=== PATIENT | male | born 1945 | race Caucasian/White ===

== ENCOUNTER 2021-01-01 08:51 | Inpatient (IN) | payer MEDICARE, BC ==
[2021-01-01] MEDS ORDERED: Dexamethasone 10 MG/ML VIAL ONE (09:53)
[2021-01-01 10:30] LABS: #Lymphocytes 0.4 thou/uL (1.20-3.40); #Monocytes 0.5 thou/uL (0.11-0.59); #Neutrophils 6.3 thou/uL (1.40-6.50); %Basophils 0.1 % (0.0-1.0); %Eosinophils 0.1 % (0.0-10.0); %Monocytes 7.2 % (0.0-10.0); %Neutrophils 86.6 % (42.0-75.0); Hemoglobin 13.4 g/dL (14.0-18.0); Mean Corpuscular HGB CONC 32.6 g/dL (32.0-36.0); Mean Corpuscular Hemoglobin 30.4 pg (27.0-31.0); Mean Corpuscular Volume 93.2 fL (78.0-98.0); Mean Platelet Volume 8.4 fL (7.4-10.4); Platelet Count 126 thou/uL (130-400); RBC Distribution Width 12.8 % (11.5-14.5); Red Blood Cell (RBC) Count 4.41 mill/uL (4.70-6.10); White Blood Cell (WBC) Count 7.2 thou/uL (4.8-10.8)
[2021-01-01 11:02] LABS: ALT (SGPT) 71 U/L (8-55); AST (SGOT) 38 U/L (5-34); Albumin 3.6 g/dL (3.4-4.8); Alkaline Phosphatase 60 U/L (40-110); Anion Gap 12 mmol/L (10-20); BUN (Urea Nitrogen) 23 mg/dL (8.4-25.7); Bilirubin, Total 1.3 mg/dL (0.2-1.2); Calc. Creatinine Clearance 0 mL/min (70-130); Calcium 8.5 mg/dL (7.8-10.44); Carbon Dioxide 25 mmol/L (23-31); Chloride 106 mmol/L (98-107); Globulin 2.8 g/dL (2.4-3.5); Glucose 150 mg/dL (83-110); Potassium 3.6 mmol/L (3.5-5.1); Protein, Total 6.4 g/dL (5.8-8.1); Sodium 139 mmol/L (136-145)
[2021-01-01] MEDS ORDERED: Ketorolac Tromethamine 30 MG/ML VIAL ONE (11:17)
[2021-01-01] MEDS ORDERED: Ondansetron PF 4 MG/2 ML Vial ONE (11:17)
[2021-01-01 13:01] LABS: SARS-CoV-2 NAA Rapid Test DETECTED (NotDetected)
[2021-01-01] MEDS: cefTRIAXone\\ROCEPHIN 1 GM in Sodium Chloride 0.9% 100 ML IVPB SCH (15:31)
[2021-01-01] MEDS: Azithromycin 500 MG in Sodium Chloride 0.9% 250 ML 250 ML IVPB SCH (15:31)
[2021-01-01] MEDS: Atenolol 50 MG TAB PO SCH (21:56)
[2021-01-02] MEDS: Amlodipine 5 MG TAB PO SCH (08:09)
[2021-01-02] MEDS: Aspirin 81 mg Enteric Coated Tablet PO SCH (08:09)
[2021-01-02] MEDS ORDERED: Dexamethasone 4 mg/ml Vial SLOW IVP SCH (09:00)
[2021-01-02] MEDS ORDERED: Aspirin 81 mg Enteric Coated Tablet PO SCH (09:00)
[2021-01-02] MEDS ORDERED: Dexamethasone 10 MG in Sodium Chloride 0.9% 50 ML IVPB SCH (09:47)
[2021-01-02] MEDS ORDERED: Ascorbic Acid 500 mg Chewable Tablet PO SCH ×2 (09:48→10:15)
[2021-01-02] MEDS ORDERED: Cholecalciferol 1,000 UNITS (25 MCG) TAB PO SCH ×2 (09:48→10:15)
[2021-01-02] MEDS ORDERED: Enoxaparin Sodium 40 MG/0.4 ML SYRINGE SC SCH (10:00)
[2021-01-02] MEDS ORDERED: Thiamine 100 MG TAB PO SCH (10:00)
[2021-01-02] MEDS ORDERED: Zinc Sulfate 220 MG CAP PO SCH (10:30)
[2021-01-02] MEDS ORDERED: Sodium Chloride 0.9% (PF) 10 ML VIAL FS PRN (10:30)
[2021-01-02] MEDS ORDERED: Dexamethasone 10 MG/ML VIAL SLOW IVP SCH (10:30)
[2021-01-02] MEDS: cefTRIAXone\\ROCEPHIN 1 GM in Sodium Chloride 0.9% 100 ML IVPB SCH (11:26)
[2021-01-02] MEDS: Enoxaparin Sodium 40 MG/0.4 ML SYRINGE SC SCH (11:26)
[2021-01-02] MEDS: Azithromycin 500 MG in Sodium Chloride 0.9% 250 ML 250 ML IVPB SCH (12:11)
[2021-01-02] MEDS ORDERED: Furosemide 40 MG/4 ML VIAL SLOW IVP SCH (17:45)
[2021-01-02] MEDS: Potassium Chloride 20 MEQ in Premix Bag 1 BAG IVPB SCH (18:41)
[2021-01-02] MEDS ORDERED: Potassium Chloride 20 MEQ TAB PO SCH (18:45)
[2021-01-02] MEDS: Dexamethasone 10 MG/ML VIAL SLOW IVP SCH (20:39)
[2021-01-02] MEDS: CLOMIPRAMINE HCL 25 MG PO SCH (20:39)
[2021-01-02] MEDS: Atenolol 50 MG TAB PO SCH (22:07)
[2021-01-03] MEDS: Thiamine 100 MG TAB PO SCH (09:21)
[2021-01-03] MEDS: Aspirin 81 mg Enteric Coated Tablet PO SCH (09:22)
[2021-01-03] MEDS: Amlodipine 5 MG TAB PO SCH (09:22)
[2021-01-03] MEDS: Pantoprazole 40 MG VIAL IVP SCH (09:22)
[2021-01-03] MEDS: Cholecalciferol 1,000 UNITS (25 MCG) TAB PO SCH (09:22)
[2021-01-03] MEDS: Ascorbic Acid 500 mg Chewable Tablet PO SCH (09:22)
[2021-01-03] MEDS: Dexamethasone 10 MG/ML VIAL SLOW IVP SCH ×2 (09:22→20:17)
[2021-01-03] MEDS: Enoxaparin Sodium 40 MG/0.4 ML SYRINGE SC SCH (09:22)
[2021-01-03] MEDS: Zinc Sulfate 220 MG CAP PO SCH (09:22)
[2021-01-03] MEDS: Azithromycin 500 MG in Sodium Chloride 0.9% 250 ML 250 ML IVPB SCH (12:18)
[2021-01-03] MEDS: cefTRIAXone\\ROCEPHIN 1 GM in Sodium Chloride 0.9% 100 ML IVPB SCH (12:18)
[2021-01-03] MEDS ORDERED: Amlodipine 10 MG TAB PO SCH (19:00)
[2021-01-03] MEDS: Atenolol 50 MG TAB PO SCH (20:17)
[2021-01-03] MEDS: CLOMIPRAMINE HCL 25 MG PO SCH (20:17)
[2021-01-04] MEDS: Aspirin 81 mg Enteric Coated Tablet PO SCH (08:17)
[2021-01-04] MEDS: Ascorbic Acid 500 mg Chewable Tablet PO SCH (08:17)
[2021-01-04] MEDS: Amlodipine 10 MG TAB PO SCH (08:17)
[2021-01-04] MEDS: Zinc Sulfate 220 MG CAP PO SCH (08:20)
[2021-01-04] MEDS: Thiamine 100 MG TAB PO SCH (08:20)
[2021-01-04] MEDS: Enoxaparin Sodium 40 MG/0.4 ML SYRINGE SC SCH (08:20)
[2021-01-04] MEDS: Cholecalciferol 1,000 UNITS (25 MCG) TAB PO SCH (08:20)
[2021-01-04] MEDS: Pantoprazole 40 MG VIAL IVP SCH (08:20)
[2021-01-04] MEDS: Dexamethasone 10 MG/ML VIAL SLOW IVP SCH ×2 (08:20→20:15)
[2021-01-04] MEDS: Azithromycin 500 MG in Sodium Chloride 0.9% 250 ML 250 ML IVPB SCH (13:37)
[2021-01-04] MEDS: cefTRIAXone\\ROCEPHIN 1 GM in Sodium Chloride 0.9% 100 ML IVPB SCH (13:37)
[2021-01-04] MEDS: CLOMIPRAMINE HCL 25 MG PO SCH (20:15)
[2021-01-04] MEDS: Atenolol 50 MG TAB PO SCH (20:40)
[2021-01-04] MEDS ORDERED: Pharmacy to Dose BARICITINIB PO PRN (20:51)
[2021-01-04] MEDS: BARICITINIB 2 MG TAB PO SCH (21:31)
[2021-01-05 04:16] LABS: #Lymphocytes 0.5 thou/uL (1.20-3.40); #Monocytes 0.5 thou/uL (0.11-0.59); #Neutrophils 7.6 thou/uL (1.40-6.50); %Eosinophils 0.1 % (0.0-10.0); %Lymphocytes 5.6 % (21.0-51.0); %Monocytes 5.4 % (0.0-10.0); %Neutrophils 88.9 % (42.0-75.0); Hemoglobin 14.5 g/dL (14.0-18.0); Mean Corpuscular HGB CONC 34.3 g/dL (32.0-36.0); Mean Corpuscular Hemoglobin 32.2 pg (27.0-31.0); Mean Corpuscular Volume 93.8 fL (78.0-98.0); Mean Platelet Volume 8.4 fL (7.4-10.4); Platelet Count 167 thou/uL (130-400); RBC Distribution Width 12.5 % (11.5-14.5); White Blood Cell (WBC) Count 8.5 thou/uL (4.8-10.8)
[2021-01-05 04:36] LABS: ALT (SGPT) 216 U/L (8-55); AST (SGOT) 90 U/L (5-34); Albumin 3.1 g/dL (3.4-4.8); Alkaline Phosphatase 70 U/L (40-110); Anion Gap 15 mmol/L (10-20); BUN (Urea Nitrogen) 37 mg/dL (8.4-25.7); Bilirubin, Total 0.9 mg/dL (0.2-1.2); Calc. Creatinine Clearance 61 mL/min (70-130); Calcium 8.2 mg/dL (7.8-10.44); Carbon Dioxide 22 mmol/L (23-31); Chloride 103 mmol/L (98-107); Globulin 2.9 g/dL (2.4-3.5); Glucose 414 mg/dL (83-110); Potassium 4.9 mmol/L (3.5-5.1); Sodium 135 mmol/L (136-145)
[2021-01-05] MEDS: Aspirin 81 mg Enteric Coated Tablet PO SCH (07:58)
[2021-01-05] MEDS: Dexamethasone 10 MG/ML VIAL SLOW IVP SCH ×2 (07:58→20:09)
[2021-01-05] MEDS: Thiamine 100 MG TAB PO SCH (07:58)
[2021-01-05] MEDS: Amlodipine 10 MG TAB PO SCH (07:58)
[2021-01-05] MEDS: Pantoprazole 40 MG VIAL IVP SCH (07:59)
[2021-01-05] MEDS: Cholecalciferol 1,000 UNITS (25 MCG) TAB PO SCH (07:59)
[2021-01-05] MEDS: Ascorbic Acid 500 mg Chewable Tablet PO SCH (07:59)
[2021-01-05] MEDS: Enoxaparin Sodium 40 MG/0.4 ML SYRINGE SC SCH (07:59)
[2021-01-05] MEDS: Zinc Sulfate 220 MG CAP PO SCH (07:59)
[2021-01-05] MEDS ORDERED: Dextrose 50% Abboject 50 ML SYRINGE SLOW IVP PRN (13:46)
[2021-01-05] MEDS ORDERED: Dextrose 5% in Water 1,000 ML IV PRN (13:46)
[2021-01-05] MEDS: HumaLOG 300 UNITS/3 ML VIAL SC PRN (17:00)
[2021-01-05] MEDS: CLOMIPRAMINE HCL 25 MG PO SCH (20:09)
[2021-01-05] MEDS: BARICITINIB 2 MG TAB PO SCH (20:09)
[2021-01-05] MEDS: Atenolol 50 MG TAB PO SCH (21:39)
[2021-01-06] MEDS: HumaLOG 300 UNITS/3 ML VIAL SC PRN (06:33)
[2021-01-06] MEDS: Amlodipine 10 MG TAB PO SCH (09:25)
[2021-01-06] MEDS: Aspirin 81 mg Enteric Coated Tablet PO SCH (09:25)
[2021-01-06] MEDS: Ascorbic Acid 500 mg Chewable Tablet PO SCH (09:25)
[2021-01-06] MEDS: Lantus 1000 UNITS/10 ML VIAL SC SCH ×2 (09:25→21:29)
[2021-01-06] MEDS: Thiamine 100 MG TAB PO SCH (09:25)
[2021-01-06] MEDS: Dexamethasone 10 MG/ML VIAL SLOW IVP SCH ×2 (09:25→21:29)
[2021-01-06] MEDS: Cholecalciferol 1,000 UNITS (25 MCG) TAB PO SCH (09:25)
[2021-01-06] MEDS: Zinc Sulfate 220 MG CAP PO SCH (09:25)
[2021-01-06] MEDS ORDERED: Ondansetron PF 4 MG/2 ML Vial IVP SCH (11:45)
[2021-01-06] MEDS ORDERED: Mag-Al 1200 mg/1200 mg/30 ML UDCUP PO SCH (11:45)
[2021-01-06] MEDS ORDERED: Ondansetron PF 4 MG/2 ML Vial IVP PRN (15:31)
[2021-01-06] MEDS ORDERED: Mag-Al 1200 mg/1200 mg/30 ML UDCUP PO PRN (15:31)
[2021-01-06] MEDS: BARICITINIB 2 MG TAB PO SCH (21:28)
[2021-01-06] MEDS: CLOMIPRAMINE HCL 25 MG PO SCH (21:28)
[2021-01-06] MEDS: Atenolol 50 MG TAB PO SCH (22:04)
[2021-01-07] MEDS ORDERED: Acetaminophen 325 MG TAB PO PRN (01:21)
[2021-01-07] MEDS: HumaLOG 300 UNITS/3 ML VIAL SC PRN (06:14)
[2021-01-07] MEDS: Enoxaparin Sodium 40 MG/0.4 ML SYRINGE SC SCH (08:08)
[2021-01-07] MEDS: Lantus 1000 UNITS/10 ML VIAL SC SCH ×2 (08:09→20:27)
[2021-01-07] MEDS: Zinc Sulfate 220 MG CAP PO SCH (08:09)
[2021-01-07] MEDS: Aspirin 81 mg Enteric Coated Tablet PO SCH (08:09)
[2021-01-07] MEDS: Cholecalciferol 1,000 UNITS (25 MCG) TAB PO SCH (08:09)
[2021-01-07] MEDS: Dexamethasone 10 MG/ML VIAL SLOW IVP SCH ×2 (08:09→20:26)
[2021-01-07] MEDS: Amlodipine 10 MG TAB PO SCH (08:09)
[2021-01-07] MEDS: Ascorbic Acid 500 mg Chewable Tablet PO SCH (08:09)
[2021-01-07] MEDS: Thiamine 100 MG TAB PO SCH (08:09)
[2021-01-07 10:15] LABS: #Lymphocytes 0.8 thou/uL (1.20-3.40); #Monocytes 0.7 thou/uL (0.11-0.59); #Neutrophils 12.2 thou/uL (1.40-6.50); %Eosinophils 0.1 % (0.0-10.0); %Lymphocytes 5.8 % (21.0-51.0); %Neutrophils 89.1 % (42.0-75.0); Hemoglobin 15.2 g/dL (14.0-18.0); Mean Corpuscular HGB CONC 33.3 g/dL (32.0-36.0); Mean Corpuscular Hemoglobin 31.1 pg (27.0-31.0); Mean Corpuscular Volume 93.4 fL (78.0-98.0); Mean Platelet Volume 8.5 fL (7.4-10.4); Platelet Count 188 thou/uL (130-400); RBC Distribution Width 12.5 % (11.5-14.5); White Blood Cell (WBC) Count 13.6 thou/uL (4.8-10.8)
[2021-01-07 10:42] LABS: ALT (SGPT) 135 U/L (8-55); AST (SGOT) 31 U/L (5-34); Albumin 3.3 g/dL (3.4-4.8); Alkaline Phosphatase 76 U/L (40-110); Anion Gap 15 mmol/L (10-20); BUN (Urea Nitrogen) 38 mg/dL (8.4-25.7); Bilirubin, Total 1.1 mg/dL (0.2-1.2); Calc. Creatinine Clearance 58 mL/min (70-130); Calcium 8.4 mg/dL (7.8-10.44); Carbon Dioxide 24 mmol/L (23-31); Chloride 102 mmol/L (98-107); Globulin 2.9 g/dL (2.4-3.5); Glucose 203 mg/dL (83-110); Potassium 4.7 mmol/L (3.5-5.1); Protein, Total 6.2 g/dL (5.8-8.1); Sodium 136 mmol/L (136-145)
[2021-01-07] MEDS: CLOMIPRAMINE HCL 25 MG PO SCH (20:26)
[2021-01-07] MEDS: BARICITINIB 2 MG TAB PO SCH (20:26)
[2021-01-07] MEDS: Atenolol 50 MG TAB PO SCH (21:30)
[2021-01-08 04:52] LABS: Anion Gap 12 mmol/L (10-20); BUN (Urea Nitrogen) 35 mg/dL (8.4-25.7); Calc. Creatinine Clearance 62 mL/min (70-130); Calcium 7.8 mg/dL (7.8-10.44); Carbon Dioxide 22 mmol/L (23-31); Chloride 104 mmol/L (98-107); Glucose 239 mg/dL (83-110); Potassium 4.7 mmol/L (3.5-5.1); Sodium 133 mmol/L (136-145)
[2021-01-08 05:18] LABS: Band 4 % (5-11); Hemoglobin 15.1 g/dL (14.0-18.0); Lymphocytes 4 % (21-51); MDiff Complete? YES; Mean Corpuscular HGB CONC 35.1 g/dL (32.0-36.0); Mean Corpuscular Hemoglobin 32.4 pg (27.0-31.0); Mean Corpuscular Volume 92.2 fL (78.0-98.0); Mean Platelet Volume 8.3 fL (7.4-10.4); Monocytes 3 % (0-10); Neutrophil 88 % (42-75); Platelet Count 168 thou/uL (130-400); Platelet Morphology Comment Appears Adequate; RBC Distribution Width 12.6 % (11.5-14.5); RBC Morphology Normal; Reactive Lymphocytes 1 % (0-10); Red Blood Cell (RBC) Count 4.67 mill/uL (4.70-6.10); White Blood Cell (WBC) Count 13.3 thou/uL (4.8-10.8)
[2021-01-08] MEDS: HumaLOG 300 UNITS/3 ML VIAL SC PRN (06:14)
[2021-01-08] MEDS: Zinc Sulfate 220 MG CAP PO SCH (07:58)
[2021-01-08] MEDS: Enoxaparin Sodium 40 MG/0.4 ML SYRINGE SC SCH (07:58)
[2021-01-08] MEDS: Ascorbic Acid 500 mg Chewable Tablet PO SCH (07:59)
[2021-01-08] MEDS: Amlodipine 10 MG TAB PO SCH (07:59)
[2021-01-08] MEDS: Atenolol 50 MG TAB PO SCH (07:59)
[2021-01-08] MEDS: Cholecalciferol 1,000 UNITS (25 MCG) TAB PO SCH (07:59)
[2021-01-08] MEDS: Aspirin 81 mg Enteric Coated Tablet PO SCH (07:59)
[2021-01-08] MEDS: Thiamine 100 MG TAB PO SCH (07:59)
[2021-01-08] MEDS: Lantus 1000 UNITS/10 ML VIAL SC SCH ×2 (08:00→20:46)
[2021-01-08] MEDS: Dexamethasone 10 MG/ML VIAL SLOW IVP SCH ×2 (09:48→20:15)
[2021-01-08] MEDS ORDERED: guaiFENesin/Codeine 200 mg/20 mg 10 ml Cup PO PRN (10:08)
[2021-01-08] MEDS: ALPRAZolam 0.25 MG TAB PO PRN ×2 (10:40→20:15)
[2021-01-08] MEDS: CLOMIPRAMINE HCL 25 MG PO SCH (20:16)
[2021-01-08] MEDS: BARICITINIB 2 MG TAB PO SCH (20:18)
[2021-01-09] MEDS: Cepastat Lozenges 1 LOZ PO PRN (03:34)
[2021-01-09 03:53] LABS: #Lymphocytes 0.5 thou/uL (1.20-3.40); #Monocytes 0.4 thou/uL (0.11-0.59); #Neutrophils 13.4 thou/uL (1.40-6.50); %Lymphocytes 3.7 % (21.0-51.0); %Monocytes 2.7 % (0.0-10.0); %Neutrophils 93.6 % (42.0-75.0); Hemoglobin 15.6 g/dL (14.0-18.0); Mean Corpuscular HGB CONC 34.3 g/dL (32.0-36.0); Mean Corpuscular Hemoglobin 32.7 pg (27.0-31.0); Mean Corpuscular Volume 95.2 fL (78.0-98.0); Mean Platelet Volume 8.5 fL (7.4-10.4); Platelet Count 180 thou/uL (130-400); RBC Distribution Width 12.8 % (11.5-14.5); Red Blood Cell (RBC) Count 4.78 mill/uL (4.70-6.10); White Blood Cell (WBC) Count 14.3 thou/uL (4.8-10.8)
[2021-01-09 04:37] LABS: Anion Gap 13 mmol/L (10-20); BUN (Urea Nitrogen) 35 mg/dL (8.4-25.7); Calc. Creatinine Clearance 62 mL/min (70-130); Calcium 7.7 mg/dL (7.8-10.44); Carbon Dioxide 18 mmol/L (23-31); Chloride 107 mmol/L (98-107); Glucose 237 mg/dL (83-110); Potassium 4.5 mmol/L (3.5-5.1); Sodium 133 mmol/L (136-145)
[2021-01-09] MEDS: HumaLOG 300 UNITS/3 ML VIAL SC PRN ×3 (05:48→18:05)
[2021-01-09] MEDS: Dexamethasone 10 MG/ML VIAL SLOW IVP SCH ×2 (08:59→22:00)
[2021-01-09] MEDS: Enoxaparin Sodium 40 MG/0.4 ML SYRINGE SC SCH (08:59)
[2021-01-09] MEDS: Ascorbic Acid 500 mg Chewable Tablet PO SCH (09:00)
[2021-01-09] MEDS: Amlodipine 10 MG TAB PO SCH (09:00)
[2021-01-09] MEDS: Multivitamin W/ Minerals 1 TAB PO SCH (09:00)
[2021-01-09] MEDS: Thiamine 100 MG TAB PO SCH (09:00)
[2021-01-09] MEDS: Aspirin 81 mg Enteric Coated Tablet PO SCH (09:00)
[2021-01-09] MEDS: Cholecalciferol 1,000 UNITS (25 MCG) TAB PO SCH (09:00)
[2021-01-09] MEDS: Atenolol 50 MG TAB PO SCH (09:00)
[2021-01-09] MEDS: Zinc Sulfate 220 MG CAP PO SCH (09:00)
[2021-01-09] MEDS: Lantus 1000 UNITS/10 ML VIAL SC SCH ×2 (09:01→23:26)
[2021-01-09] MEDS: guaiFENesin/Codeine 200 mg/20 mg 10 ml Cup PO SCH ×2 (10:12→16:22)
[2021-01-09] MEDS: ALPRAZolam 0.25 MG TAB PO PRN ×2 (12:50→22:02)
[2021-01-09] MEDS: BARICITINIB 2 MG TAB PO SCH (22:02)
[2021-01-10] MEDS: guaiFENesin/Codeine 200 mg/20 mg 10 ml Cup PO SCH ×5 (00:16→20:53)
[2021-01-10] MEDS: CLOMIPRAMINE HCL 25 MG PO SCH ×2 (03:13→20:56)
[2021-01-10 04:24] LABS: #Basophils 0.1 thou/uL (0.0-0.2); #Lymphocytes 0.3 thou/uL (1.20-3.40); #Monocytes 0.4 thou/uL (0.11-0.59); #Neutrophils 13.9 thou/uL (1.40-6.50); %Basophils 0.9 % (0.0-1.0); %Eosinophils 0.1 % (0.0-10.0); %Lymphocytes 1.9 % (21.0-51.0); %Monocytes 2.7 % (0.0-10.0); %Neutrophils 94.4 % (42.0-75.0); Hemoglobin 15.9 g/dL (14.0-18.0); Mean Corpuscular HGB CONC 34.2 g/dL (32.0-36.0); Mean Corpuscular Hemoglobin 32.1 pg (27.0-31.0); Mean Corpuscular Volume 93.7 fL (78.0-98.0); Mean Platelet Volume 8.2 fL (7.4-10.4); Platelet Count 169 thou/uL (130-400); RBC Distribution Width 12.9 % (11.5-14.5); Red Blood Cell (RBC) Count 4.97 mill/uL (4.70-6.10); White Blood Cell (WBC) Count 14.8 thou/uL (4.8-10.8)
[2021-01-10 04:42] LABS: Anion Gap 12 mmol/L (10-20); BUN (Urea Nitrogen) 33 mg/dL (8.4-25.7); Calc. Creatinine Clearance 63 mL/min (70-130); Carbon Dioxide 22 mmol/L (23-31); Chloride 106 mmol/L (98-107); Potassium 4.3 mmol/L (3.5-5.1); Sodium 136 mmol/L (136-145)
[2021-01-10 04:43] LABS: ALT (SGPT) 84 U/L (8-55); AST (SGOT) 22 U/L (5-34); Albumin 3.1 g/dL (3.4-4.8); Alkaline Phosphatase 72 U/L (40-110); Bilirubin, Direct 0.5 mg/dL (0.1-0.3); Bilirubin, Total 1.2 mg/dL (0.2-1.2); Calcium 8.2 mg/dL (7.8-10.44); Glucose 75 mg/dL (83-110); Protein, Total 6.1 g/dL (5.8-8.1)
[2021-01-10] MEDS: Enoxaparin Sodium 40 MG/0.4 ML SYRINGE SC SCH (09:07)
[2021-01-10] MEDS: Lantus 1000 UNITS/10 ML VIAL SC SCH ×2 (09:08→20:54)
[2021-01-10] MEDS: Dexamethasone 10 MG/ML VIAL SLOW IVP SCH ×2 (09:09→20:49)
[2021-01-10] MEDS: Atenolol 50 MG TAB PO SCH (09:11)
[2021-01-10] MEDS: Zinc Sulfate 220 MG CAP PO SCH (09:11)
[2021-01-10] MEDS: Cholecalciferol 1,000 UNITS (25 MCG) TAB PO SCH (09:11)
[2021-01-10] MEDS: ALPRAZolam 0.25 MG TAB PO PRN ×2 (09:11→20:53)
[2021-01-10] MEDS: Aspirin 81 mg Enteric Coated Tablet PO SCH (09:11)
[2021-01-10] MEDS: Cyanocobalamin (Vitamin B-12) 1,000 MCG TAB PO SCH (09:11)
[2021-01-10] MEDS: Ascorbic Acid 500 mg Chewable Tablet PO SCH (09:11)
[2021-01-10] MEDS: Thiamine 100 MG TAB PO SCH (09:11)
[2021-01-10] MEDS: Amlodipine 10 MG TAB PO SCH (09:11)
[2021-01-10] MEDS: Multivitamin W/ Minerals 1 TAB PO SCH (09:11)
[2021-01-10] MEDS: HumaLOG 300 UNITS/3 ML VIAL SC PRN (17:32)
[2021-01-10] MEDS: BARICITINIB 2 MG TAB PO SCH (20:49)
[2021-01-11 04:29] LABS: Anion Gap 12 mmol/L (10-20); BUN (Urea Nitrogen) 35 mg/dL (8.4-25.7); Calc. Creatinine Clearance 64 mL/min (70-130); Calcium 7.9 mg/dL (7.8-10.44); Carbon Dioxide 21 mmol/L (23-31); Chloride 109 mmol/L (98-107); Glucose 83 mg/dL (83-110); Magnesium 2.6 mg/dL (1.6-2.6); Potassium 4.4 mmol/L (3.5-5.1); Sodium 138 mmol/L (136-145)
[2021-01-11] MEDS: guaiFENesin/Codeine 200 mg/20 mg 10 ml Cup PO SCH ×4 (04:39→21:07)
[2021-01-11] MEDS: Ascorbic Acid 500 mg Chewable Tablet PO SCH (08:31)
[2021-01-11] MEDS: Amlodipine 10 MG TAB PO SCH (08:31)
[2021-01-11] MEDS: Multivitamin W/ Minerals 1 TAB PO SCH (08:31)
[2021-01-11] MEDS: Aspirin 81 mg Enteric Coated Tablet PO SCH (08:31)
[2021-01-11] MEDS: Enoxaparin Sodium 40 MG/0.4 ML SYRINGE SC SCH (08:32)
[2021-01-11] MEDS: Dexamethasone 10 MG/ML VIAL SLOW IVP SCH ×2 (08:32→21:06)
[2021-01-11] MEDS: Cyanocobalamin (Vitamin B-12) 1,000 MCG TAB PO SCH (08:32)
[2021-01-11] MEDS: Zinc Sulfate 220 MG CAP PO SCH (08:32)
[2021-01-11] MEDS: Thiamine 100 MG TAB PO SCH (08:32)
[2021-01-11] MEDS: Cholecalciferol 1,000 UNITS (25 MCG) TAB PO SCH (08:32)
[2021-01-11] MEDS: Lantus 1000 UNITS/10 ML VIAL SC SCH (08:35)
[2021-01-11] MEDS ORDERED: Electrolyte Replacement Protocol 1 EACH FS SCH (16:45)
[2021-01-11] MEDS: BARICITINIB 2 MG TAB PO SCH (21:06)
[2021-01-11] MEDS: CLOMIPRAMINE HCL 25 MG PO SCH (21:08)
[2021-01-11] MEDS: HumaLOG 300 UNITS/3 ML VIAL SC PRN (21:09)
[2021-01-11] MEDS: ALPRAZolam 0.25 MG TAB PO PRN (21:13)
[2021-01-12] MEDS: Cepastat Lozenges 1 LOZ PO PRN (01:45)
[2021-01-12 04:13] LABS: #Lymphocytes 0.5 thou/uL (1.20-3.40); #Monocytes 0.4 thou/uL (0.11-0.59); #Neutrophils 7.6 thou/uL (1.40-6.50); %Eosinophils 0.1 % (0.0-10.0); %Lymphocytes 6.1 % (21.0-51.0); %Monocytes 4.6 % (0.0-10.0); %Neutrophils 89.2 % (42.0-75.0); Mean Corpuscular HGB CONC 32.4 g/dL (32.0-36.0); Mean Corpuscular Hemoglobin 30.6 pg (27.0-31.0); Mean Corpuscular Volume 94.4 fL (78.0-98.0); Mean Platelet Volume 8.8 fL (7.4-10.4); Platelet Count 143 thou/uL (130-400); RBC Distribution Width 13.1 % (11.5-14.5); Red Blood Cell (RBC) Count 5.53 mill/uL (4.70-6.10); White Blood Cell (WBC) Count 8.5 thou/uL (4.8-10.8)
[2021-01-12 04:25] LABS: Phosphorus 3.5 mg/dL (2.3-4.7)
[2021-01-12 04:27] LABS: Anion Gap 16 mmol/L (10-20); BUN (Urea Nitrogen) 38 mg/dL (8.4-25.7); Calc. Creatinine Clearance 57 mL/min (70-130); Calcium 8.2 mg/dL (7.8-10.44); Carbon Dioxide 20 mmol/L (23-31); Chloride 107 mmol/L (98-107); Glucose 164 mg/dL (83-110); Magnesium 2.7 mg/dL (1.6-2.6); Potassium 4.6 mmol/L (3.5-5.1); Sodium 138 mmol/L (136-145)
[2021-01-12] MEDS: HumaLOG 300 UNITS/3 ML VIAL SC PRN (05:40)
[2021-01-12] MEDS: guaiFENesin/Codeine 200 mg/20 mg 10 ml Cup PO SCH ×2 (06:37→09:15)
[2021-01-12] MEDS: Enoxaparin Sodium 40 MG/0.4 ML SYRINGE SC SCH (09:15)
[2021-01-12] MEDS: Amlodipine 5 MG TAB PO SCH (09:15)
[2021-01-12] MEDS: Zinc Sulfate 220 MG CAP PO SCH (09:15)
[2021-01-12] MEDS: Dexamethasone 10 MG/ML VIAL SLOW IVP SCH (09:15)
[2021-01-12] MEDS: Ascorbic Acid 500 mg Chewable Tablet PO SCH (09:16)
[2021-01-12] MEDS: Multivitamin W/ Minerals 1 TAB PO SCH (09:16)
[2021-01-12] MEDS: Cyanocobalamin (Vitamin B-12) 1,000 MCG TAB PO SCH (09:16)
[2021-01-12] MEDS: Aspirin 81 mg Enteric Coated Tablet PO SCH (09:16)
[2021-01-12] MEDS: Cholecalciferol 1,000 UNITS (25 MCG) TAB PO SCH (09:16)
[2021-01-12] MEDS: Thiamine 100 MG TAB PO SCH (09:16)
[2021-01-12] MEDS ORDERED: guaiFENesin/Codeine 200 mg/20 mg 10 ml Cup PO PRN (11:54)
[2021-01-12] MEDS: CLOMIPRAMINE HCL 25 MG PO SCH (20:45)
[2021-01-12] MEDS: ALPRAZolam 0.25 MG TAB PO PRN (20:45)
[2021-01-12] MEDS: BARICITINIB 2 MG TAB PO SCH (20:45)
[2021-01-13 06:30] LABS: #Lymphocytes 0.5 thou/uL (1.20-3.40); #Monocytes 1.2 thou/uL (0.11-0.59); #Neutrophils 7.8 thou/uL (1.40-6.50); %Eosinophils 0.2 % (0.0-10.0); %Lymphocytes 5.3 % (21.0-51.0); %Neutrophils 81.5 % (42.0-75.0); Hemoglobin 18.3 g/dL (14.0-18.0); Mean Corpuscular HGB CONC 32.1 g/dL (32.0-36.0); Mean Corpuscular Hemoglobin 30.1 pg (27.0-31.0); Mean Corpuscular Volume 93.8 fL (78.0-98.0); Mean Platelet Volume 8.8 fL (7.4-10.4); Platelet Count 158 thou/uL (130-400); RBC Distribution Width 13.2 % (11.5-14.5); Red Blood Cell (RBC) Count 6.07 mill/uL (4.70-6.10); White Blood Cell (WBC) Count 9.5 thou/uL (4.8-10.8)
[2021-01-13 06:34] LABS: Anion Gap 16 mmol/L (10-20); BUN (Urea Nitrogen) 38 mg/dL (8.4-25.7); Calc. Creatinine Clearance 55 mL/min (70-130); Calcium 8.2 mg/dL (7.8-10.44); Carbon Dioxide 21 mmol/L (23-31); Chloride 109 mmol/L (98-107); Glucose 75 mg/dL (83-110); Phosphorus 3.5 mg/dL (2.3-4.7); Potassium 4.5 mmol/L (3.5-5.1); Sodium 141 mmol/L (136-145)
[2021-01-13 06:44] LABS: ALT (SGPT) 55 U/L (8-55); AST (SGOT) 20 U/L (5-34); Albumin 3.3 g/dL (3.4-4.8); Alkaline Phosphatase 84 U/L (40-110); Bilirubin, Direct 0.4 mg/dL (0.1-0.3); Bilirubin, Total 1.5 mg/dL (0.2-1.2); Protein, Total 6.2 g/dL (5.8-8.1)
[2021-01-13] MEDS ORDERED: Dexamethasone 10 MG/ML VIAL SLOW IVP SCH (09:00)
[2021-01-13 09:09] VITALS: BMI 30.9
[2021-01-13] MEDS: Cyanocobalamin (Vitamin B-12) 1,000 MCG TAB PO SCH (09:15)
[2021-01-13] MEDS: Aspirin 81 mg Enteric Coated Tablet PO SCH (09:15)
[2021-01-13] MEDS: Amlodipine 5 MG TAB PO SCH (09:15)
[2021-01-13] MEDS: Ascorbic Acid 500 mg Chewable Tablet PO SCH (09:15)
[2021-01-13] MEDS: Multivitamin W/ Minerals 1 TAB PO SCH (09:15)
[2021-01-13] MEDS: Thiamine 100 MG TAB PO SCH (09:15)
[2021-01-13] MEDS: Enoxaparin Sodium 40 MG/0.4 ML SYRINGE SC SCH (09:15)
[2021-01-13] MEDS: Zinc Sulfate 220 MG CAP PO SCH (09:15)
[2021-01-13] MEDS: Cholecalciferol 1,000 UNITS (25 MCG) TAB PO SCH (09:16)
[2021-01-13] MEDS: ALPRAZolam 0.25 MG TAB PO PRN (11:45)
[2021-01-13 15:54] VITALS: TEMP 98.2
[2021-01-13 16:11] VITALS: BP 150/78
[2021-01-13] MEDS ORDERED: Nystatin 500,000 UNITS/5 ML UDCUP SSW SCH (17:00)
== END 2021-01-13 18:15 | DRG 871 ==
LOC: ERS 08:51 → ERHOLD 11:35 → T4-A 12:10 → ERHOLD 12:14 → T4-A 14:33 → IMCU/EMU 01-02 14:39 → 2SW 01-12 20:01
PROVIDERS: ADMIT Internal Medicine; ATTEND Internal Medicine
PROC: 8E0ZXY6 Isolation (ICD-10-PCS; principal; 2021-01-01)
PROC: 5A09557 Assistance with Respiratory Ventilation, Greater than 96 Consecutive Hours, Continuous Positive Airway Pressure (ICD-10-PCS; 2021-01-01)
PROC: 3E0333Z Introduction of Anti-inflammatory into Peripheral Vein, Percutaneous Approach (ICD-10-PCS; 2021-01-01)
PROC: XW0DXM6 Introduction of Baricitinib into Mouth and Pharynx, External Approach, New Technology Group 6 (ICD-10-PCS; 2021-01-04)
DX: A41.89 Other specified sepsis (principal); U07.1 COVID-19; J12.82 Pneumonia due to coronavirus disease 2019; J96.01 Acute respiratory failure with hypoxia; I10 Essential (primary) hypertension; E11.22 Type 2 diabetes mellitus with diabetic chronic kidney disease; N18.30 Chronic kidney disease, stage 3 unspecified; E66.9 Obesity, unspecified; R74.01 Elevation of levels of liver transaminase levels; D63.1 Anemia in chronic kidney disease; G47.33 Obstructive sleep apnea (adult) (pediatric); E11.65 Type 2 diabetes mellitus with hyperglycemia; E11.649 Type 2 diabetes mellitus with hypoglycemia without coma; R65.20 Severe sepsis without septic shock; D53.9 Nutritional anemia, unspecified; D69.6 Thrombocytopenia, unspecified; Z91.012 Allergy to eggs; Z91.011 Allergy to milk products; Z91.010 Allergy to peanuts; Z91.018 Allergy to other foods; Z79.82 Long term (current) use of aspirin; Z79.51 Long term (current) use of inhaled steroids; Z79.899 Other long term (current) drug therapy; Z98.84 Bariatric surgery status; Z83.1 Family history of other infectious and parasitic diseases; Z68.35 Body mass index [BMI] 35.0-35.9, adult
CPT/HCPCS: 36415; 36416; 71045; 80048; 80053; 80076; 82728; 83735; 83880; 84100; 84145; 84443; 84484; 85025; 85379; 86140; 93005; 93010; 94660; 96374; 96375; C9113; J0456; J0696; J1100; J1650; J1815; J1885; J1940; J2405; J3490; J7050; U0002

== ENCOUNTER 2021-01-17 22:43 | Inpatient (IN) | payer MEDICARE, BC ==
[~2021-01-17 22:43] MED LIST: Iopamidol-370 76% 500 ML 1 ML ONE
[2021-01-17] MEDS ORDERED: Magnesium 2 GM/50 ML BAG (IN WATER) ONE (23:45)
[2021-01-17 23:46] LABS: #Lymphocytes 0.6 thou/uL (1.20-3.40); #Monocytes 1.2 thou/uL (0.11-0.59); %Basophils 0.1 % (0.0-1.0); %Eosinophils 0.4 % (0.0-10.0); %Lymphocytes 5.7 % (21.0-51.0); %Neutrophils 81.8 % (42.0-75.0); Hemoglobin 17.2 g/dL (14.0-18.0); Mean Corpuscular HGB CONC 33.6 g/dL (32.0-36.0); Mean Corpuscular Hemoglobin 32.1 pg (27.0-31.0); Mean Corpuscular Volume 95.4 fL (78.0-98.0); Mean Platelet Volume 9.2 fL (7.4-10.4); Platelet Count 102 thou/uL (130-400); RBC Distribution Width 13.5 % (11.5-14.5); Red Blood Cell (RBC) Count 5.35 mill/uL (4.70-6.10); White Blood Cell (WBC) Count 9.8 thou/uL (4.8-10.8)
[2021-01-18 00:12] LABS: ALT (SGPT) 39 U/L (8-55); AST (SGOT) 22 U/L (5-34); Albumin 2.8 g/dL (3.4-4.8); Alkaline Phosphatase 69 U/L (40-110); Anion Gap 12 mmol/L (10-20); BUN (Urea Nitrogen) 30 mg/dL (8.4-25.7); Bilirubin, Total 2.5 mg/dL (0.2-1.2); Calc. Creatinine Clearance 0 mL/min (70-130); Calcium 7.9 mg/dL (7.8-10.44); Carbon Dioxide 20 mmol/L (23-31); Chloride 117 mmol/L (98-107); Globulin 2.4 g/dL (2.4-3.5); Glucose 149 mg/dL (83-110); Lipase 50 U/L (8-78); Magnesium 2.3 mg/dL (1.6-2.6); Potassium 3.9 mmol/L (3.5-5.1); Protein, Total 5.2 g/dL (5.8-8.1); Sodium 145 mmol/L (136-145)
[2021-01-18 00:31] LABS: CKMB 3.6 ng/mL (0-6.6)
[2021-01-18 03:19] LABS: Troponin I 0.058 ng/mL (< 0.028)
[2021-01-18 03:37] LABS: SARS-CoV-2 NAA Rapid Test DETECTED (NotDetected)
[2021-01-18] MEDS ORDERED: Ondansetron ODT 4 MG TAB PO PRN (05:02)
[2021-01-18] MEDS ORDERED: Acetaminophen 325 MG TAB PO PRN (05:02)
[2021-01-18] MEDS ORDERED: Ondansetron PF 4 MG/2 ML Vial IVP PRN (05:02)
[2021-01-18] MEDS: Morphine 4 MG/ML VIAL SLOW IVP PRN ×4 (05:08→17:04)
[2021-01-18] MEDS ORDERED: Nystatin 500,000 UNITS/5 ML UDCUP SSW SCH (09:00)
[2021-01-18] MEDS ORDERED: Heparin 1,000 UNITS/ML VIAL ONE ×2 (09:32→10:20)
[2021-01-18] MEDS ORDERED: Calcium Carbonate 500 MG TAB PO PRN (09:37)
[2021-01-18] MEDS ORDERED: Aluminum & Magnesium Hydroxide 60 ML, Lidocaine 2% Viscous Solution 30 ML, diphenhydrAM... SSW SCH (09:37)
[2021-01-18] MEDS ORDERED: Morphine IR 10 MG/5 ML UDCUP PO PRN (09:46)
[2021-01-18] MEDS ORDERED: Morphine 2 MG/ML VIAL SLOW IVP PRN (10:35)
[2021-01-18] MEDS ORDERED: Fluconazole 100 MG TAB PO SCH (10:45)
[2021-01-18] MEDS ORDERED: Fluconazole In NaCl,Iso-Osm 200 MG in Premix Bag 1 BAG IVPB SCH (12:00)
[2021-01-18] MEDS: Nystatin 500,000 UNITS/5 ML UDCUP PO SCH ×3 (12:34→21:24)
[2021-01-18] MEDS ORDERED: Sodium Chloride 0.9% 1,000 ML IV SCH (14:00)
[2021-01-18] MEDS ORDERED: ALPRAZolam 0.25 MG TAB PO SCH (15:00)
[2021-01-18] MEDS: Lidocaine Viscous Sol 2% 15 ml UD Cup SSP SCH ×2 (15:43→21:23)
[2021-01-18] MEDS ORDERED: CLOMIPRAMINE HCL 25 MG PO SCH (21:00)
[2021-01-18] MEDS: Metoprolol Tartrate 25 MG TAB PO SCH ×2 (21:24→22:17)
[2021-01-18] MEDS: D5W-AA 4.25% with LYTES 1,000 ML IV SCH (22:20)
[2021-01-19] MEDS ORDERED: HumaLOG 300 UNITS/3 ML VIAL SC PRN (05:03)
[2021-01-19] MEDS ORDERED: Dextrose 5% in Water 1,000 ML IV PRN (05:03)
[2021-01-19] MEDS ORDERED: Dextrose 50% Abboject 50 ML SYRINGE SLOW IVP PRN (05:03)
[2021-01-19] MEDS: HumaLOG 300 UNITS/3 ML VIAL SC PRN (06:04)
[2021-01-19] MEDS: Morphine 4 MG/ML VIAL SLOW IVP PRN ×5 (08:19→21:59)
[2021-01-19] MEDS: Lidocaine Viscous Sol 2% 15 ml UD Cup SSP SCH ×4 (08:19→22:13)
[2021-01-19] MEDS: Metoprolol Tartrate 25 MG TAB PO SCH ×3 (08:20→21:59)
[2021-01-19] MEDS: Famotidine 20 MG TAB PO SCH ×2 (08:20→09:20)
[2021-01-19] MEDS: Cyanocobalamin (Vitamin B-12) 1,000 MCG TAB PO SCH ×2 (08:20→09:20)
[2021-01-19] MEDS: Zinc Sulfate 220 MG CAP PO SCH ×2 (08:20→09:20)
[2021-01-19] MEDS: Thiamine 100 MG TAB PO SCH ×2 (08:20→09:20)
[2021-01-19] MEDS: Multivitamin W/ Minerals 1 TAB PO SCH ×2 (08:20→09:20)
[2021-01-19] MEDS: Amlodipine 5 MG TAB PO SCH ×2 (08:20→09:19)
[2021-01-19] MEDS: Cholecalciferol 1,000 UNITS (25 MCG) TAB PO SCH ×2 (08:20→09:20)
[2021-01-19] MEDS: Nystatin 500,000 UNITS/5 ML UDCUP PO SCH ×6 (08:20→22:13)
[2021-01-19] MEDS: Ascorbic Acid 500 mg Chewable Tablet PO SCH ×2 (08:20→09:19)
[2021-01-19] MEDS: Aspirin 81 mg Enteric Coated Tablet PO SCH ×2 (08:20→09:20)
[2021-01-19] MEDS ORDERED: Fluconazole 100 MG TAB PO SCH (09:00)
[2021-01-19] MEDS ORDERED: Lidocaine 2% Viscous Solution 10 ML, Aluminum & Magnesium Hydroxide 30 ML SSW SCH (09:45)
[2021-01-19] MEDS ORDERED: Chloraseptic Spray 180 ml Bottle PO PRN (13:12)
[2021-01-19] MEDS ORDERED: Pantoprazole 40 MG VIAL IVP SCH (13:15)
[2021-01-19] MEDS ORDERED: Enoxaparin Sodium 40 MG/0.4 ML SYRINGE SC SCH (13:30)
[2021-01-19] MEDS: Fluconazole In NaCl,Iso-Osm 100 MG in Admixture Fee 1 EACH IVPB SCH ×2 (14:38→14:39)
[2021-01-19 16:26] LABS: #Eosinphils 0.1 thou/uL (0.0-0.7); #Lymphocytes 1.1 thou/uL (1.20-3.40); #Monocytes 0.9 thou/uL (0.11-0.59); #Neutrophils 9.1 thou/uL (1.40-6.50); %Basophils 0.1 % (0.0-1.0); %Eosinophils 0.6 % (0.0-10.0); %Lymphocytes 9.6 % (21.0-51.0); %Monocytes 7.9 % (0.0-10.0); %Neutrophils 81.8 % (42.0-75.0); Hemoglobin 17.5 g/dL (14.0-18.0); Mean Corpuscular HGB CONC 33.1 g/dL (32.0-36.0); Mean Corpuscular Hemoglobin 32.1 pg (27.0-31.0); Mean Platelet Volume 9.6 fL (7.4-10.4); Platelet Count 77 thou/uL (130-400); RBC Distribution Width 13.8 % (11.5-14.5); Red Blood Cell (RBC) Count 5.45 mill/uL (4.70-6.10); White Blood Cell (WBC) Count 11.1 thou/uL (4.8-10.8)
[2021-01-19 16:41] LABS: Lactic Acid 2.2 mmol/L (0.5-2.2)
[2021-01-19 18:17] LABS: ALT (SGPT) 37 U/L (8-55); AST (SGOT) 19 U/L (5-34); Alkaline Phosphatase 76 U/L (40-110); Anion Gap 15 mmol/L (10-20); BUN (Urea Nitrogen) 28 mg/dL (8.4-25.7); Bilirubin, Total 1.9 mg/dL (0.2-1.2); Calc. Creatinine Clearance 53 mL/min (70-130); Calcium 8.2 mg/dL (7.8-10.44); Carbon Dioxide 21 mmol/L (23-31); Chloride 119 mmol/L (98-107); Globulin 2.8 g/dL (2.4-3.5); Glucose 150 mg/dL (83-110); Potassium 4.2 mmol/L (3.5-5.1); Protein, Total 5.8 g/dL (5.8-8.1); Sodium 151 mmol/L (136-145)
[2021-01-19] MEDS ORDERED: Fluconazole In NaCl,Iso-Osm 100 MG in Premix Bag 1 BAG IVPB SCH ×2 (21:00)
[2021-01-19] MEDS: Pantoprazole 40 MG VIAL IVP SCH (21:21)
[2021-01-19] MEDS: SODIUM CHLORIDE 0.9% IVPB SCH (22:00)
[2021-01-19] MEDS: ACYCLOVIR SODIUM IVPB SCH (22:00)
[2021-01-19] MEDS: D5W-AA 4.25% with LYTES 1,000 ML IV SCH (23:17)
[2021-01-20] MEDS: HumaLOG 300 UNITS/3 ML VIAL SC PRN (05:52)
[2021-01-20] MEDS ORDERED: Pantoprazole 40 MG VIAL IVP SCH (09:00)
[2021-01-20] MEDS: Lidocaine Viscous Sol 2% 15 ml UD Cup SSP SCH ×3 (09:06→20:52)
[2021-01-20] MEDS: Amlodipine 5 MG TAB PO SCH (09:10)
[2021-01-20] MEDS: Ascorbic Acid 500 mg Chewable Tablet PO SCH (09:10)
[2021-01-20] MEDS: Aspirin 81 mg Enteric Coated Tablet PO SCH (09:10)
[2021-01-20] MEDS: Cholecalciferol 1,000 UNITS (25 MCG) TAB PO SCH (09:11)
[2021-01-20] MEDS: Enoxaparin Sodium 40 MG/0.4 ML SYRINGE SC SCH (09:11)
[2021-01-20] MEDS: Cyanocobalamin (Vitamin B-12) 1,000 MCG TAB PO SCH (09:11)
[2021-01-20] MEDS: Famotidine 20 MG TAB PO SCH (09:11)
[2021-01-20] MEDS: Nystatin 500,000 UNITS/5 ML UDCUP PO SCH ×4 (09:12→21:01)
[2021-01-20] MEDS: Pantoprazole 40 MG VIAL IVP SCH ×2 (09:12→21:02)
[2021-01-20] MEDS: Multivitamin W/ Minerals 1 TAB PO SCH (09:12)
[2021-01-20] MEDS: Metoprolol Tartrate 25 MG TAB PO SCH ×2 (09:12→20:48)
[2021-01-20] MEDS: Thiamine 100 MG TAB PO SCH (09:13)
[2021-01-20] MEDS: Zinc Sulfate 220 MG CAP PO SCH (09:13)
[2021-01-20] MEDS: Fluconazole In NaCl,Iso-Osm 200 MG in Premix Bag 1 BAG IVPB SCH (09:43)
[2021-01-20] MEDS: Morphine 4 MG/ML VIAL SLOW IVP PRN ×3 (09:44→21:07)
[2021-01-20] MEDS: ACYCLOVIR SODIUM IVPB SCH ×2 (11:12→22:52)
[2021-01-20] MEDS: SODIUM CHLORIDE 0.9% IVPB SCH ×2 (11:12→22:52)
[2021-01-20] MEDS ORDERED: Fluconazole In NaCl,Iso-Osm 100 MG in Admixture Fee 1 EACH IVPB SCH (14:00)
[2021-01-20 22:32] LABS: #Eosinphils 0.2 thou/uL (0.0-0.7); #Lymphocytes 0.7 thou/uL (1.20-3.40); #Monocytes 1.1 thou/uL (0.11-0.59); #Neutrophils 7.7 thou/uL (1.40-6.50); %Basophils 0.1 % (0.0-1.0); %Eosinophils 1.8 % (0.0-10.0); %Lymphocytes 7.4 % (21.0-51.0); %Monocytes 11.2 % (0.0-10.0); %Neutrophils 79.5 % (42.0-75.0); Mean Corpuscular HGB CONC 33.5 g/dL (32.0-36.0); Mean Corpuscular Volume 95.6 fL (78.0-98.0); Mean Platelet Volume 10.9 fL (7.4-10.4); Platelet Count 60 thou/uL (130-400); RBC Distribution Width 13.8 % (11.5-14.5); Red Blood Cell (RBC) Count 5.01 mill/uL (4.70-6.10); White Blood Cell (WBC) Count 9.7 thou/uL (4.8-10.8)
[2021-01-20] MEDS: D5W-AA 4.25% with LYTES 1,000 ML IV SCH (22:41)
[2021-01-20 22:46] LABS: ALT (SGPT) 35 U/L (8-55); AST (SGOT) 24 U/L (5-34); Albumin 2.7 g/dL (3.4-4.8); Alkaline Phosphatase 79 U/L (40-110); Anion Gap 17 mmol/L (10-20); BUN (Urea Nitrogen) 36 mg/dL (8.4-25.7); Bilirubin, Total 1.7 mg/dL (0.2-1.2); Calc. Creatinine Clearance 50 mL/min (70-130); Calcium 8.1 mg/dL (7.8-10.44); Carbon Dioxide 16 mmol/L (23-31); Chloride 121 mmol/L (98-107); Glucose 186 mg/dL (83-110); Magnesium 2.7 mg/dL (1.6-2.6); Phosphorus 2.9 mg/dL (2.3-4.7); Protein, Total 5.7 g/dL (5.8-8.1); Sodium 149 mmol/L (136-145)
[2021-01-21] MEDS: Morphine 4 MG/ML VIAL SLOW IVP PRN ×3 (06:22→22:12)
[2021-01-21] MEDS: Aspirin 81 mg Enteric Coated Tablet PO SCH (09:01)
[2021-01-21] MEDS: Ascorbic Acid 500 mg Chewable Tablet PO SCH (09:01)
[2021-01-21] MEDS: Amlodipine 5 MG TAB PO SCH (09:01)
[2021-01-21] MEDS: Cyanocobalamin (Vitamin B-12) 1,000 MCG TAB PO SCH (09:01)
[2021-01-21] MEDS: Cholecalciferol 1,000 UNITS (25 MCG) TAB PO SCH (09:01)
[2021-01-21] MEDS: Thiamine 100 MG TAB PO SCH (09:02)
[2021-01-21] MEDS: Fluconazole In NaCl,Iso-Osm 200 MG in Premix Bag 1 BAG IVPB SCH (09:02)
[2021-01-21] MEDS: Famotidine 20 MG TAB PO SCH (09:02)
[2021-01-21] MEDS: Enoxaparin Sodium 40 MG/0.4 ML SYRINGE SC SCH (09:02)
[2021-01-21] MEDS: Lidocaine Viscous Sol 2% 15 ml UD Cup SSP SCH ×3 (09:02→22:08)
[2021-01-21] MEDS: Pantoprazole 40 MG VIAL IVP SCH ×2 (09:02→22:11)
[2021-01-21] MEDS: Multivitamin W/ Minerals 1 TAB PO SCH (09:02)
[2021-01-21] MEDS: Metoprolol Tartrate 25 MG TAB PO SCH ×2 (09:02→22:11)
[2021-01-21] MEDS: Nystatin 500,000 UNITS/5 ML UDCUP PO SCH ×4 (09:02→22:11)
[2021-01-21] MEDS: Zinc Sulfate 220 MG CAP PO SCH (09:02)
[2021-01-21] MEDS: SODIUM CHLORIDE 0.9% IVPB SCH ×2 (11:08→22:11)
[2021-01-21] MEDS: ACYCLOVIR SODIUM IVPB SCH ×2 (11:08→22:11)
[2021-01-21] MEDS: D5W-AA 4.25% with LYTES 1,000 ML IV SCH (12:58)
[2021-01-21 18:43] LABS: ALT (SGPT) 33 U/L (8-55); AST (SGOT) 22 U/L (5-34); Albumin 2.5 g/dL (3.4-4.8); Alkaline Phosphatase 70 U/L (40-110); Anion Gap 14 mmol/L (10-20); BUN (Urea Nitrogen) 34 mg/dL (8.4-25.7); Bilirubin, Total 1.4 mg/dL (0.2-1.2); Calc. Creatinine Clearance 52 mL/min (70-130); Carbon Dioxide 21 mmol/L (23-31); Chloride 120 mmol/L (98-107); Globulin 2.7 g/dL (2.4-3.5); Glucose 166 mg/dL (83-110); Potassium 4.3 mmol/L (3.5-5.1); Protein, Total 5.2 g/dL (5.8-8.1); Sodium 151 mmol/L (136-145)
[2021-01-21 19:02] LABS: HIV (1/2) Antibody/Antigen Non-Reactive (NonReactive); HIV 1/2 INDEX 0.18 S/CO (<1.00)
[2021-01-22] MEDS: D5W-AA 4.25% with LYTES 1,000 ML IV SCH ×2 (00:42→22:08)
[2021-01-22] MEDS: Lorazepam 2 MG/ML VIAL SLOW IVP PRN (01:27)
[2021-01-22] MEDS: SODIUM CHLORIDE 0.9% IVPB SCH ×2 (10:56→21:03)
[2021-01-22] MEDS: Fluconazole In NaCl,Iso-Osm 200 MG in Premix Bag 1 BAG IVPB SCH (10:56)
[2021-01-22] MEDS: ACYCLOVIR SODIUM IVPB SCH ×2 (10:56→21:03)
[2021-01-22] MEDS: Morphine 4 MG/ML VIAL SLOW IVP PRN (10:57)
[2021-01-22] MEDS: Pantoprazole 40 MG VIAL IVP SCH ×2 (10:57→21:03)
[2021-01-22] MEDS: Aspirin 81 mg Enteric Coated Tablet PO SCH (13:49)
[2021-01-22] MEDS: Cholecalciferol 1,000 UNITS (25 MCG) TAB PO SCH (13:49)
[2021-01-22] MEDS: Cyanocobalamin (Vitamin B-12) 1,000 MCG TAB PO SCH (13:49)
[2021-01-22] MEDS: Ascorbic Acid 500 mg Chewable Tablet PO SCH (13:49)
[2021-01-22] MEDS: Amlodipine 5 MG TAB PO SCH (13:49)
[2021-01-22] MEDS: Enoxaparin Sodium 40 MG/0.4 ML SYRINGE SC SCH (13:49)
[2021-01-22] MEDS: Lidocaine Viscous Sol 2% 15 ml UD Cup SSP SCH ×4 (13:50→23:40)
[2021-01-22] MEDS: Famotidine 20 MG TAB PO SCH (13:50)
[2021-01-22] MEDS: Nystatin 500,000 UNITS/5 ML UDCUP PO SCH ×3 (13:50→20:59)
[2021-01-22] MEDS: Metoprolol Tartrate 25 MG TAB PO SCH ×2 (13:50→20:59)
[2021-01-22] MEDS: Multivitamin W/ Minerals 1 TAB PO SCH (13:50)
[2021-01-22] MEDS: Zinc Sulfate 220 MG CAP PO SCH (13:51)
[2021-01-22] MEDS: Thiamine 100 MG TAB PO SCH (13:51)
[2021-01-22] MEDS ORDERED: Furosemide 20 MG/2 ML VIAL SLOW IVP SCH (15:15)
[2021-01-22 15:26] VITALS: BMI 30.4
[2021-01-22 19:09] LABS: AST (SGOT) 33 U/L (5-34); Albumin 2.7 g/dL (3.4-4.8); Alkaline Phosphatase 28 U/L (40-110); Anion Gap 16 mmol/L (10-20); BUN (Urea Nitrogen) 31 mg/dL (8.4-25.7); Bilirubin, Total 1.9 mg/dL (0.2-1.2); Calc. Creatinine Clearance 52 mL/min (70-130); Calcium 8.5 mg/dL (7.8-10.44); Carbon Dioxide 13 mmol/L (23-31); Chloride 114 mmol/L (98-107); Globulin 3.4 g/dL (2.4-3.5); Glucose 138 mg/dL (83-110); Potassium 4.4 mmol/L (3.5-5.1); Protein, Total 6.1 g/dL (5.8-8.1); Sodium 139 mmol/L (136-145)
[2021-01-22 19:17] LABS: ALT (SGPT) 46 U/L (8-55)
[2021-01-22] MEDS ORDERED: [UNRECOGNIZED DRUG - OTHER] IV SCH (22:00)
[2021-01-22] MEDS ORDERED: SODIUM ACETATE IV SCH (22:00)
[2021-01-22] MEDS ORDERED: POTASSIUM ACETATE IV SCH (22:00)
[2021-01-22] MEDS ORDERED: SODIUM CHLORIDE IV SCH (22:00)
[2021-01-23 01:20] LABS: MDiff Complete? YES; Mean Corpuscular HGB CONC 33.1 g/dL (32.0-36.0); Mean Corpuscular Hemoglobin 31.3 pg (27.0-31.0); Mean Corpuscular Volume 94.7 fL (78.0-98.0); Mean Platelet Volume 11.4 fL (7.4-10.4); Platelet Count 30 thou/uL (130-400); RBC Distribution Width 13.8 % (11.5-14.5); Red Blood Cell (RBC) Count 4.79 mill/uL (4.70-6.10); White Blood Cell (WBC) Count 6.8 thou/uL (4.8-10.8)
[2021-01-23 01:21] LABS: Band 7 % (5-11); Eosinophils 1 % (0-10); Lymphocytes 6 % (21-51); Monocytes 9 % (0-10); Neutrophil 72 % (42-75); Platelet Morphology Comment Appears Decreased; RBC Morphology Normal; Reactive Lymphocytes 4 % (0-10)
[2021-01-23] MEDS: Nystatin 500,000 UNITS/5 ML UDCUP PO SCH ×4 (09:35→20:05)
[2021-01-23] MEDS: Enoxaparin Sodium 40 MG/0.4 ML SYRINGE SC SCH (09:35)
[2021-01-23] MEDS: Lidocaine Viscous Sol 2% 15 ml UD Cup SSP SCH ×3 (09:35→20:05)
[2021-01-23] MEDS: Amlodipine 5 MG TAB PO SCH (09:36)
[2021-01-23] MEDS: Fluconazole In NaCl,Iso-Osm 200 MG in Premix Bag 1 BAG IVPB SCH (09:36)
[2021-01-23] MEDS: Famotidine 20 MG TAB PO SCH (09:37)
[2021-01-23] MEDS: Cyanocobalamin (Vitamin B-12) 1,000 MCG TAB PO SCH (09:37)
[2021-01-23] MEDS: Metoprolol Tartrate 25 MG TAB PO SCH ×2 (09:37→19:52)
[2021-01-23] MEDS: Cholecalciferol 1,000 UNITS (25 MCG) TAB PO SCH (09:37)
[2021-01-23] MEDS: Multivitamin W/ Minerals 1 TAB PO SCH (09:37)
[2021-01-23] MEDS: Aspirin 81 mg Enteric Coated Tablet PO SCH (09:37)
[2021-01-23] MEDS: Ascorbic Acid 500 mg Chewable Tablet PO SCH (09:37)
[2021-01-23] MEDS: Thiamine 100 MG TAB PO SCH (09:38)
[2021-01-23] MEDS: Zinc Sulfate 220 MG CAP PO SCH (09:38)
[2021-01-23] MEDS: Pantoprazole 40 MG VIAL IVP SCH ×2 (09:38→20:06)
[2021-01-23] MEDS: SODIUM CHLORIDE 0.9% IVPB SCH ×2 (09:51→22:28)
[2021-01-23] MEDS: ACYCLOVIR SODIUM IVPB SCH ×2 (09:51→22:28)
[2021-01-23] MEDS: D5W-AA 4.25% with LYTES 1,000 ML IV SCH (12:42)
[2021-01-23] MEDS ORDERED: [UNRECOGNIZED DRUG - OTHER] IV SCH (22:00)
[2021-01-23] MEDS ORDERED: SODIUM CHLORIDE IV SCH (22:00)
[2021-01-23] MEDS ORDERED: POTASSIUM ACETATE IV SCH (22:00)
[2021-01-23] MEDS ORDERED: SODIUM ACETATE IV SCH (22:00)
[2021-01-24] MEDS: HumaLOG 300 UNITS/3 ML VIAL SC PRN (06:08)
[2021-01-24] MEDS: ACYCLOVIR SODIUM IVPB SCH ×2 (09:21→23:16)
[2021-01-24] MEDS: Fluconazole In NaCl,Iso-Osm 200 MG in Premix Bag 1 BAG IVPB SCH (09:21)
[2021-01-24] MEDS: Pantoprazole 40 MG VIAL IVP SCH ×2 (09:21→23:16)
[2021-01-24] MEDS: SODIUM CHLORIDE 0.9% IVPB SCH ×2 (09:21→23:16)
[2021-01-24] MEDS: Amlodipine 5 MG TAB PO SCH (09:22)
[2021-01-24] MEDS: Aspirin 81 mg Enteric Coated Tablet PO SCH (09:22)
[2021-01-24] MEDS: Ascorbic Acid 500 mg Chewable Tablet PO SCH (09:22)
[2021-01-24] MEDS: Cyanocobalamin (Vitamin B-12) 1,000 MCG TAB PO SCH (09:22)
[2021-01-24] MEDS: Nystatin 500,000 UNITS/5 ML UDCUP PO SCH ×4 (09:22→23:16)
[2021-01-24] MEDS: Lidocaine Viscous Sol 2% 15 ml UD Cup SSP SCH ×3 (09:22→23:15)
[2021-01-24] MEDS: Cholecalciferol 1,000 UNITS (25 MCG) TAB PO SCH (09:22)
[2021-01-24] MEDS: Famotidine 20 MG TAB PO SCH (09:23)
[2021-01-24] MEDS: Enoxaparin Sodium 40 MG/0.4 ML SYRINGE SC SCH (09:23)
[2021-01-24] MEDS: Metoprolol Tartrate 25 MG TAB PO SCH ×2 (09:23→22:31)
[2021-01-24] MEDS: Multivitamin W/ Minerals 1 TAB PO SCH (09:23)
[2021-01-24] MEDS: Zinc Sulfate 220 MG CAP PO SCH (09:24)
[2021-01-24] MEDS: Thiamine 100 MG TAB PO SCH (09:24)
[2021-01-24] MEDS ORDERED: Ondansetron PF 4 MG/2 ML Vial IVP PRN (09:30)
[2021-01-24] MEDS ORDERED: Ropivacaine 0.2% 550 ML 550 ML NERVE BLCK SCH (09:30)
[2021-01-24] MEDS ORDERED: Ketorolac Tromethamine 30 MG/ML VIAL IVP PRN (09:30)
[2021-01-24] MEDS ORDERED: traMADol HCl 50 MG TAB PO PRN ×2 (09:30)
[2021-01-24] MEDS ORDERED: Zolpidem Tartrate 5 MG TAB PO PRN (09:30)
[2021-01-24] MEDS ORDERED: HYDROcodone/Acetaminophen 5/325 mg Tablet PO PRN ×2 (09:30)
[2021-01-24] MEDS ORDERED: Promethazine HCl 25 MG/ML VIAL IM PRN (09:30)
[2021-01-24 09:33] LABS: Albumin 2.4 g/dL (3.4-4.8)
[2021-01-24 09:34] LABS: Calcium 8.2 mg/dL (7.8-10.44); Chloride 115 mmol/L (98-107); Potassium 3.9 mmol/L (3.5-5.1); Sodium 147 mmol/L (136-145)
[2021-01-24 09:35] LABS: Glucose 219 mg/dL (83-110); Protein, Total 5.4 g/dL (5.8-8.1)
[2021-01-24 09:37] LABS: Carbon Dioxide 25 mmol/L (23-31)
[2021-01-24 09:38] LABS: Alkaline Phosphatase 80 U/L (40-110); Calc. Creatinine Clearance 49 mL/min (70-130)
[2021-01-24 09:39] LABS: BUN (Urea Nitrogen) 29 mg/dL (8.4-25.7)
[2021-01-24 09:40] LABS: AST (SGOT) 33 U/L (5-34)
[2021-01-24 09:41] LABS: ALT (SGPT) 50 U/L (8-55)
[2021-01-24 09:44] LABS: Anion Gap 11 mmol/L (10-20); Phosphorus 1.9 mg/dL (2.3-4.7)
[2021-01-24] MEDS: Lorazepam 2 MG/ML VIAL SLOW IVP PRN (11:09)
[2021-01-24 19:38] LABS: CMV DNA-PCR Test Negative (Negative)
[2021-01-24] MEDS: Acetaminophen 650 MG Suppository PR PRN (20:44)
[2021-01-24] MEDS: metroNIDAZOLE 250 MG in Admixture Fee 1 EACH IVPB SCH (20:48)
[2021-01-24] MEDS: Ampicillin/Sulbactam 3 GM in Sodium Chloride 0.9% 100 ML IVPB SCH (21:39)
[2021-01-24] MEDS ORDERED: [UNRECOGNIZED DRUG - OTHER] IV SCH ×2 (22:00)
[2021-01-24] MEDS ORDERED: SODIUM ACETATE IV SCH ×2 (22:00)
[2021-01-24] MEDS ORDERED: POTASSIUM ACETATE IV SCH ×2 (22:00)
[2021-01-24] MEDS ORDERED: POTASSIUM PHOSPHATE IV SCH ×2 (22:00)
[2021-01-24] MEDS: Chlorhexidine Gluconate 15 ML UDCUP SSP SCH (23:15)
[2021-01-25 01:12] LABS: HSV 1 - DNA Positive (Negative); HSV 2 - DNA Negative (Negative)
[2021-01-25] MEDS: Lorazepam 2 MG/ML VIAL SLOW IVP PRN ×3 (01:31→15:04)
[2021-01-25] MEDS: Acetaminophen 650 MG Suppository PR PRN (01:42)
[2021-01-25] MEDS: Morphine 4 MG/ML VIAL SLOW IVP PRN ×3 (02:56→15:04)
[2021-01-25] MEDS: Chlorhexidine Gluconate 15 ML UDCUP SSP SCH ×3 (03:02→15:02)
[2021-01-25] MEDS: metroNIDAZOLE 250 MG in Admixture Fee 1 EACH IVPB SCH ×3 (03:32→15:02)
[2021-01-25] MEDS: Ampicillin/Sulbactam 3 GM in Sodium Chloride 0.9% 100 ML IVPB SCH ×2 (05:59→15:02)
[2021-01-25 06:01] LABS: ALT (SGPT) 66 U/L (8-55); AST (SGOT) 43 U/L (5-34); Albumin 2.4 g/dL (3.4-4.8); Alkaline Phosphatase 83 U/L (40-110); Anion Gap 12 mmol/L (10-20); BUN (Urea Nitrogen) 24 mg/dL (8.4-25.7); Bilirubin, Total 2.8 mg/dL (0.2-1.2); Calc. Creatinine Clearance 46 mL/min (70-130); Calcium 8.1 mg/dL (7.8-10.44); Carbon Dioxide 23 mmol/L (23-31); Chloride 112 mmol/L (98-107); Glucose 308 mg/dL (83-110); Potassium 3.9 mmol/L (3.5-5.1); Protein, Total 5.4 g/dL (5.8-8.1); Sodium 143 mmol/L (136-145)
[2021-01-25] MEDS: HumaLOG 300 UNITS/3 ML VIAL SC PRN ×2 (06:06→11:58)
[2021-01-25 08:41] VITALS: BP 133/66
[2021-01-25 09:38] LABS: HSV 1 - DNA Positive (Negative); HSV 2 - DNA Negative (Negative)
[2021-01-25] MEDS: Fluconazole In NaCl,Iso-Osm 200 MG in Premix Bag 1 BAG IVPB SCH (09:44)
[2021-01-25] MEDS: Enoxaparin Sodium 40 MG/0.4 ML SYRINGE SC SCH (10:04)
[2021-01-25] MEDS: Cyanocobalamin (Vitamin B-12) 1,000 MCG TAB PO SCH (10:04)
[2021-01-25] MEDS: Pantoprazole 40 MG VIAL IVP SCH (10:04)
[2021-01-25] MEDS: Cholecalciferol 1,000 UNITS (25 MCG) TAB PO SCH (10:04)
[2021-01-25] MEDS: Multivitamin W/ Minerals 1 TAB PO SCH (10:05)
[2021-01-25] MEDS: Amlodipine 5 MG TAB PO SCH (10:05)
[2021-01-25] MEDS: Famotidine 20 MG TAB PO SCH (10:05)
[2021-01-25] MEDS: Metoprolol Tartrate 25 MG TAB PO SCH (10:05)
[2021-01-25] MEDS: Zinc Sulfate 220 MG CAP PO SCH (10:06)
[2021-01-25] MEDS: Aspirin 81 mg Enteric Coated Tablet PO SCH (10:06)
[2021-01-25] MEDS: Ascorbic Acid 500 mg Chewable Tablet PO SCH (10:06)
[2021-01-25] MEDS: Thiamine 100 MG TAB PO SCH (10:06)
[2021-01-25] MEDS: SODIUM CHLORIDE 0.9% IVPB SCH (10:57)
[2021-01-25] MEDS: ACYCLOVIR SODIUM IVPB SCH (10:57)
[2021-01-25] MEDS ORDERED: Acetaminophen 325 MG TAB PO PRN (10:57)
[2021-01-25] MEDS: Nystatin 500,000 UNITS/5 ML UDCUP PO SCH ×2 (10:58→13:58)
[2021-01-25] MEDS: Lidocaine Viscous Sol 2% 15 ml UD Cup SSP SCH ×2 (11:12→15:02)
[2021-01-25 13:06] LABS: Actual Bicarbonate (HCO3a) 23.3 mEq/L (22-28); Base Excess (BEa) 0.7 mEq/L (-2.0 to +3.0); CO2 Tension 31.9 mmHg (35.0-45.0); Calcium, Ionized (arterial) 1.15 mmol/L (1.12-1.30); Carboxyhemoglobin (COHb) 1.1 gm% (0.0-3.0); Hemoglobin (Hb) 15.4 g/dL (14.0-18.0); Potassium - ABG Lab 4.14 mmol/L (3.70-5.30); pH, Arterial 7.48 (7.35-7.45)
[2021-01-25] MEDS ORDERED: Morphine 2 MG/ML VIAL SLOW IVP PRN ×2 (13:26→15:21)
[2021-01-25 13:27] LABS: #Lymphocytes 0.5 thou/uL (1.20-3.40); #Monocytes 0.2 thou/uL (0.11-0.59); #Neutrophils 3.5 thou/uL (1.40-6.50); %Basophils 0.4 % (0.0-1.0); %Eosinophils 0.7 % (0.0-10.0); %Lymphocytes 12.3 % (21.0-51.0); %Monocytes 5.3 % (0.0-10.0); %Neutrophils 81.3 % (42.0-75.0); Mean Corpuscular HGB CONC 33.8 g/dL (32.0-36.0); Mean Corpuscular Hemoglobin 32.4 pg (27.0-31.0); Mean Corpuscular Volume 95.8 fL (78.0-98.0); Mean Platelet Volume 12.8 fL (7.4-10.4); Platelet Count 33 thou/uL (130-400); RBC Distribution Width 14.1 % (11.5-14.5); Red Blood Cell (RBC) Count 4.64 mill/uL (4.70-6.10); White Blood Cell (WBC) Count 4.3 thou/uL (4.8-10.8)
[2021-01-25 13:31] LABS: INR-International Normal Ratio 1.3; PTT 42.5 sec (22.9-36.1); Prothrombin Time 16.3 sec (12.0-14.7)
[2021-01-25 14:13] LABS: ALV-art Gradient 621.125 mmHg (0-20); Puncture Site RRA
[2021-01-25 15:15] VITALS: TEMP 100.6
== END 2021-01-25 15:58 | disposition expired | DRG 157 ==
LOC: ERS 22:43 → 2NO 01-18 01:35 → IMCU/EMU 01-25 13:25
PROVIDERS: ADMIT Student in an Organized Health Care Education/Training Program; ATTEND Internal Medicine
PROC: 02HV33Z Insertion of Infusion Device into Superior Vena Cava, Percutaneous Approach (ICD-10-PCS; 2021-01-21)
PROC: B548ZZA Ultrasonography of Superior Vena Cava, Guidance (ICD-10-PCS; 2021-01-21)
PROC: 3E0436Z Introduction of Nutritional Substance into Central Vein, Percutaneous Approach (ICD-10-PCS; 2021-01-21)
PROC: 02HV33Z Insertion of Infusion Device into Superior Vena Cava, Percutaneous Approach (ICD-10-PCS; principal; 2021-01-23)
PROC: B548ZZA Ultrasonography of Superior Vena Cava, Guidance (ICD-10-PCS; 2021-01-23)
DX: B00.2 Herpesviral gingivostomatitis and pharyngotonsillitis (principal); E43 Unspecified severe protein-calorie malnutrition; J96.01 Acute respiratory failure with hypoxia; N17.9 Acute kidney failure, unspecified; Z66 Do not resuscitate; R13.12 Dysphagia, oropharyngeal phase; U09.9 Post COVID-19 condition, unspecified; I48.91 Unspecified atrial fibrillation; E86.0 Dehydration; I49.5 Sick sinus syndrome; E11.69 Type 2 diabetes mellitus with other specified complication; D69.6 Thrombocytopenia, unspecified; N18.30 Chronic kidney disease, stage 3 unspecified; I12.9 Hypertensive chronic kidney disease with stage 1 through stage 4 chronic kidney disease, or unspecified chronic kidney disease; E11.22 Type 2 diabetes mellitus with diabetic chronic kidney disease; D53.9 Nutritional anemia, unspecified; G47.33 Obstructive sleep apnea (adult) (pediatric); Z91.012 Allergy to eggs; Z91.010 Allergy to peanuts; Z91.018 Allergy to other foods; Z79.82 Long term (current) use of aspirin; Z79.899 Other long term (current) drug therapy; Z98.84 Bariatric surgery status; Z68.30 Body mass index [BMI] 30.0-30.9, adult
CPT/HCPCS: 36415; 36416; 36569; 36600; 71045; 71275; 74018; 80053; 82553; 82805; 83605; 83690; 83735; 83880; 84100; 84443; 84484; 85025; 85610; 85730; 86140; 87070; 87205; 87389; 87497; 87529; 87798; 93005; 94660; 96374; A4217; A4306; C1751; C9113; J0133; J0295; J0610; J1450; J1644; J1650; J1815; J1940; J2060; J2270; J2795; J3475; J3490; J7050; Q0163; Q9967; U0002